=== PATIENT | female | born 1995 ===

== ENCOUNTER 2022-04-26 14:10 | Emergency (ER) | payer OTHER, SELFPAY ==
--- NOTE | ~2022-04-26 | US_ITS ---
EXAMINATION: US ABDOMEN COMPLETE CLINICAL INFORMATION: Upper abdominal pain. COMPARISON: None TECHNIQUE: Real-time imaging of the abdominal viscera. FINDINGS: PANCREAS: Normal. ABDOMINAL AORTA: The proximal, mid, and distal segments are normal in caliber. INFERIOR VENA CAVA: Visualized portions are normal. LIVER: Normal. The liver is normal in size. The liver contour is normal. Parenchymal echogenicity is normal. No focal hepatic lesion. There is no intrahepatic biliary duct dilatation seen. GALLBLADDER: Normal. The gallbladder is physiologically distended without evidence of stones, sludge, polyps, wall thickening or pericholecystic fluid. COMMON BILE DUCT: Normal in caliber measuring 0.1 cm in diameter. RIGHT KIDNEY: Normal. No hydronephrosis. No renal calculi or focal parenchymal lesions. The kidney measures 9.3 cm in maximum dimension. LEFT KIDNEY: Normal. No hydronephrosis. No renal calculi or focal parenchymal lesions. The kidney measures 9.8 cm in maximum dimension. SPLEEN: Incidentally noted splenule measuring 1.1 cm. The spleen measures 9.5 cm in maximum dimension. FREE FLUID: None. US/US abdomen complete IMPRESSION: No acute sonographic abnormalities to explain the patient's symptoms.
[2022-04-26 14:33] VITALS: BP 117/69; PULSE 69; RESP 18; TEMP 36.7; O2SAT 99; BMI 25.9
--- NOTE | 2022-04-26 14:34 | ED_ITS ---
HPI - Abdominal Pain General Chief Complaint: Abdominal Pain <JENNIFER Correa - Last Filed: 04/26/22 14:36> Stated Complaint: stomach pain, headache, allergies <JENINFER Correa - Last Filed: 04/26/22 14:36> Time Seen by Provider: 04/26/22 17:09 <JENNIFER Correa - Last Filed: 04/26/22 14:36> Source: patient <Keyon Cortes MD - Last Filed: 04/26/22 18:57> Mode of arrival: ambulatory <Keyon Cortes MD - Last Filed: 04/26/22 18:57> Limitations: no limitations <Keyon Cortes MD - Last Filed: 04/26/22 18:57> History of Present Illness HPI narrative: 26-year-old female presents with headache and abdominal pain. The headache is located generally. It does not radiate. Not associated with photo or phonophobia. It is not associated with nausea vomiting. She denies any neck pain or stiffness. She has had no fevers or chills. Patient denies a history of headaches in the past. Patient reports the pain is 10/10 and pressure like. Patient also reports epigastric abdominal pain. The symptoms started proximally for 5 days ago. Associated with nausea no vomiting. She denies diarrhea constipation. The pain does not radiate. The pain is rated as moderate to severe in nature. It does appear to be worse with drinking or eating. She had no fevers or chills. Patient reports the pain is burning in nature. <Keyon Cortes MD - Last Filed: 04/26/22 18:57> Related Data Home Medications: Previous Rx's Medication Instructions Recorded famotidine 20 mg tablet 20 mg PO BID #20 tabs 04/26/22 ibuprofen 600 mg tablet 600 mg PO Q8H PRN pain #14 tabs 04/26/22 metoclopramide HCl 10 mg tablet 10 mg PO Q6H PRN nausea and 04/26/22 (Reglan) vomiting #10 tabs <JENNIFER Correa - Last Filed: 04/26/22 14:36> Allergies/Adverse Reactions: Allergies Allergy/AdvReac Type Severity Reaction Status Date / Time Penicillins Allergy Rash Verified 04/26/22 14:32 <JENNIFER Correa - Last Filed: 04/26/22 14:36> [facility] Social History Social History: Social History Smoked in Last 30 Days: No Use of substances other than those prescribed or required for medical reasons: No Advance Directives: No Advance Directives Information Provided: No <JENNIFER Correa - Last Filed: 04/26/22 14:36> Physical Exam ED Vital Signs: Vital Signs - 24 hr 04/26/22 14:33 04/26/22 17:57 Temperature 98.0 F 98.0 F Pulse Rate 69 76 Respiratory Rate 18 16 Blood Pressure 117/69 120/78 Pulse Oximetry 99 98 Oxygen Delivery Method Room Air Room Air BMI result Body Mass Index 25.9 <JENNIFER Correa - Last Filed: 04/26/22 14:36> Vital Signs - 24 hr 04/26/22 14:33 04/26/22 17:57 Temperature 98.0 F 98.0 F Pulse Rate 69 76 Respiratory Rate 18 16 Blood Pressure 117/69 120/78 Pulse Oximetry 99 98 Oxygen Delivery Method Room Air Room Air BMI result Body Mass Index 25.9 <Keyon Cortes MD - Last Filed: 04/26/22 18:57> Course Course Course Narrative: CLAUDIO-14:35PM - 26yoF who is Albanian-speaking presenting to the ER with complaints of epigastric abdominal pain with associated nausea, lighthead edness/dizziness/headaches and skin allergy. Reports that her abdominal pain and nausea has been present for approximately 4 days. She has had section in the past although no other surgeries. She denies any fevers, chest pain, sore throat, shortness of breath, cough, vomiting, diarrhea constipation, recent travel or sick contacts, urinary symptoms, abnormal discharge or hematuria or any other symptoms complaints or concerns at this time Plan: Patient will be sent back to the waiting room to be evaluated in the ED with labs, ultrasound and UA ordered at this time. <JENNIFER Correa - Last Filed: 04/26/22 14:36> Reevaluation(s) Reevaluation #1: Patient is currently pain-free. She is aware of all results. She has had all her questions answered. She will be discharged at this time. Will provide patient with medications for headache, nausea, dyspepsia. <Keyon Cortes MD - Last Filed: 04/26/22 18:57> Time: 18:51 <Keyon Cortes MD - Last Filed: 04/26/22 18:57> Medical Decision Making Medical Decision Making [facility] Narrative: 26-year-old female presents with 2 symptoms. One is headache. The headache is globally located. There is no neck pain or stiffness. Examination is benign. There has been no rigors or chills. Doubt acute meningitis. Doubt subarachnoid there is no thunderclap sudden onset. Headache is most likely tension headache although could certainly be migraine, cluster, sinus. Will treat the patient symptomatically and re-evaluate. Additionally, patient complains of a burning epigastric abdominal pain associated with nausea. Symptoms are worse with eating. This could be gastritis, peptic ulcer disease, dyspepsia, GERD, reflux <Keyon Cortes MD - Last Filed: 04/26/22 18:57> Differential Diagnosis Differential Diagnoses: The differential diagnosis associated with the presentation includes (Headache, migraine headache, tension headache, cluster headache, sinus headache, less likely meningitis/subarachnoid/subdural/epidural. Epigastric abdominal pain could be gastritis, peptic ulcer disease, esophagitis, biliary) <Keyon Cortes MD - Last Filed: 04/26/22 18:57> Admission/Observation Consideration of admission/observation: Escalation of care including admission/observation considered <Keyon Cortes MD - Last Filed: 04/26/22 18:57> Lab Data [facility] Lab Attestation statement: I reviewed the patient's lab results. <Keyon Cortes MD - Last Filed: 04/26/22 18:57> Result Diagrams: 04/26/22 14:42 04/26/22 14:42 <JENNIFER Correa - Last Filed: 04/26/22 14:36> Labs: Lab Results 04/26/22 04/26/22 04/26/22 Range/Units 14:42 14:42 14:42 WBC 6.6 (4.8-10.8) X10*3/uL RBC 4.45 (4.20-5.50) X10*6/uL Hgb 13.2 (12.0-16.0) g/dl Hct 39.5 (37.0-47.0) % MCV 88.8 (80.0-98.0) fL MCH 29.7 (27.0-33.0) pg MCHC 33.4 (31.0-35.0) g/dl RDW 11.9 (11.0-16.0) % Plt Count 298 (160-400) X10*3/uL MPV 9.9 (9.4-12.3) fL Immature Gran % (Auto) 0.3 (0.0-0.4) % Neut % (Auto) 53.9 (45-73) % Lymph % (Auto) 34.8 (20-40) % [place] % (Auto) 7.2 (2-11) % Eos % (Auto) 3.0 (0-4) % Baso % (Auto) 0.8 (0-2) % Lymph # (Auto) 2.3 (1.2-4.9) X10*3/uL [place] # (Auto) 0.5 (0.1-1.2) X10*3/uL Eos # (Auto) 0.2 (0.0-0.4) X10*3/uL Baso # (Auto) 0.1 (0.0-0.2) X10*3/uL Abs Immat Gran (auto) 0.02 (0.00-0.03) X10*3/uL Absolute Neuts (auto) 3.6 (2.0-8.3) x10*3/uL Absolute Nucleated RBC 0.000 (0.0-0.012) X10*3/uL Nucleated RBC % (auto) 0.0 (0.0-0.2) /100WBC PT 12.5 (10.0-13.1) SEC INR 1.1 (0.9-1.1) Sodium 141 (135-145) mmol/L Potassium 4.7 (3.3-5.1) mmol/L Chloride 110 H (96-108) mmol/L Carbon Dioxide 24 (22-29) mmol/L Anion Gap 12 (12-20) BUN 10 (9-16) mg/dL Creatinine 0.79 (0.5-1.4) mg/dL Estim Creat Clear Calc 101.7 Estimated GFR > 60 Random Glucose 92 (60-115) mg/dL Calcium 9.3 (8.4-10.2) mg/dL Magnesium 1.9 (1.6-2.6) mg/dL Total Bilirubin 0.8 (0.0-1.0) mg/dL AST 14 (5-31) U/L ALT 10 (0-31) U/L Alkaline Phosphatase 56 (39-117) U/L Total Protein 7.0 (6.5-8.0) g/dL Albumin 3.9 (3.5-5.0) g/dL Lipase 19 (8-78) U/L Beta HCG, Quant < 2 mIU/mL Influenza Type A (PCR) (Negative) Influenza Type B (PCR) (Negative) RSV RNA Qual (PCR) (Negative) SARS-CoV-2 RNA (RT-PCR) (Negative) 04/26/22 Range/Units 14:42 WBC (4.8-10.8) X10*3/uL RBC (4.20-5.50) X10*6/uL Hgb (12.0-16.0) g/dl Hct (37.0-47.0) % MCV (80.0-98.0) fL MCH (27.0-33.0) pg MCHC (31.0-35.0) g/dl RDW (11.0-16.0) % Plt Count (160-400) X10*3/uL MPV (9.4-12.3) fL Immature Gran % (Auto) (0.0-0.4) % Neut % (Auto) (45-73) % Lymph % (Auto) (20-40) % [place] % (Auto) (2-11) % Eos % (Auto) (0-4) % Baso % (Auto) (0-2) % Lymph # (Auto) (1.2-4.9) X10*3/uL [place] # (Auto) (0.1-1.2) X10*3/uL Eos # (Auto) (0.0-0.4) X10*3/uL Baso # (Auto) (0.0-0.2) X10*3/uL Abs Immat Gran (auto) (0.00-0.03) X10*3/uL Absolute Neuts (auto) (2.0-8.3) x10*3/uL Absolute Nucleated RBC (0.0-0.012) X10*3/uL Nucleated RBC % (auto) (0.0-0.2) /100WBC PT (10.0-13.1) SEC INR (0.9-1.1) Sodium (135-145) mmol/L Potassium (3.3-5.1) mmol/L Chloride (96-108) mmol/L Carbon Dioxide (22-29) mmol/L Anion Gap (12-20) BUN (9-16) mg/dL Creatinine (0.5-1.4) mg/dL Estim Creat Clear Calc Estimated GFR Random Glucose (60-115) mg/dL Calcium (8.4-10.2) mg/dL Magnesium (1.6-2.6) mg/dL Total Bilirubin (0.0-1.0) mg/dL AST (5-31) U/L ALT (0-31) U/L Alkaline Phosphatase (39-117) U/L Total Protein (6.5-8.0) g/dL Albumin (3.5-5.0) g/dL Lipase (8-78) U/L Beta HCG, Quant mIU/mL Influenza Type A (PCR) NEGATIVE (Negative) Influenza Type B (PCR) NEGATIVE (Negative) RSV RNA Qual (PCR) NEGATIVE (Negative) SARS-CoV-2 RNA (RT-PCR) NEGATIVE (Negative) <JENNIFER Correa - Last Filed: 04/26/22 14:36> Lab Results 04/26/22 04/26/22 04/26/22 Range/Units 14:42 14:42 14:42 WBC 6.6 (4.8-10.8) X10*3/uL RBC 4.45 (4.20-5.50) X10*6/uL Hgb 13.2 (12.0-16.0) g/dl Hct 39.5 (37.0-47.0) % MCV 88.8 (80.0-98.0) fL MCH 29.7 (27.0-33.0) pg MCHC 33.4 (31.0-35.0) g/dl RDW 11.9 (11.0-16.0) % Plt Count 298 (160-400) X10*3/uL MPV 9.9 (9.4-12.3) fL Immature Gran % (Auto) 0.3 (0.0-0.4) % Neut % (Auto) 53.9 (45-73) % Lymph % (Auto) 34.8 (20-40) % [place] % (Auto) 7.2 (2-11) % Eos % (Auto) 3.0 (0-4) % Baso % (Auto) 0.8 (0-2) % Lymph # (Auto) 2.3 (1.2-4.9) X10*3/uL [place] # (Auto) 0.5 (0.1-1.2) X10*3/uL Eos # (Auto) 0.2 (0.0-0.4) X10*3/uL Baso # (Auto) 0.1 (0.0-0.2) X10*3/uL Abs Immat Gran (auto) 0.02 (0.00-0.03) X10*3/uL Absolute Neuts (auto) 3.6 (2.0-8.3) x10*3/uL Absolute Nucleated RBC 0.000 (0.0-0.012) X10*3/uL Nucleated RBC % (auto) 0.0 (0.0-0.2) /100WBC PT 12.5 (10.0-13.1) SEC INR 1.1 (0.9-1.1) Sodium 141 (135-145) mmol/L Potassium 4.7 (3.3-5.1) mmol/L Chloride 110 H (96-108) mmol/L Carbon Dioxide 24 (22-29) mmol/L Anion Gap 12 (12-20) BUN 10 (9-16) mg/dL Creatinine 0.79 (0.5-1.4) mg/dL Estim Creat Clear Calc 101.7 Estimated GFR > 60 Random Glucose 92 (60-115) mg/dL Calcium 9.3 (8.4-10.2) mg/dL Magnesium 1.9 (1.6-2.6) mg/dL Total Bilirubin 0.8 (0.0-1.0) mg/dL AST 14 (5-31) U/L ALT 10 (0-31) U/L Alkaline Phosphatase 56 (39-117) U/L Total Protein 7.0 (6.5-8.0) g/dL Albumin 3.9 (3.5-5.0) g/dL Lipase 19 (8-78) U/L Beta HCG, Quant < 2 mIU/mL Influenza Type A (PCR) (Negative) Influenza Type B (PCR) (Negative) RSV RNA Qual (PCR) (Negative) SARS-CoV-2 RNA (RT-PCR) (Negative) 04/26/22 Range/Units 14:42 WBC (4.8-10.8) X10*3/uL RBC (4.20-5.50) X10*6/uL Hgb (12.0-16.0) g/dl Hct (37.0-47.0) % MCV (80.0-98.0) fL MCH (27.0-33.0) pg MCHC (31.0-35.0) g/dl RDW (11.0-16.0) % Plt Count (160-400) X10*3/uL MPV (9.4-12.3) fL Immature Gran % (Auto) (0.0-0.4) % Neut % (Auto) (45-73) % Lymph % (Auto) (20-40) % [place] % (Auto) (2-11) % Eos % (Auto) (0-4) % Baso % (Auto) (0-2) % Lymph # (Auto) (1.2-4.9) X10*3/uL [place] # (Auto) (0.1-1.2) X10*3/uL Eos # (Auto) (0.0-0.4) X10*3/uL Baso # (Auto) (0.0-0.2) X10*3/uL Abs Immat Gran (auto) (0.00-0.03) X10*3/uL Absolute Neuts (auto) (2.0-8.3) x10*3/uL Absolute Nucleated RBC (0.0-0.012) X10*3/uL Nucleated RBC % (auto) (0.0-0.2) /100WBC PT (10.0-13.1) SEC INR (0.9-1.1) Sodium (135-145) mmol/L Potassium (3.3-5.1) mmol/L Chloride (96-108) mmol/L Carbon Dioxide (22-29) mmol/L Anion Gap (12-20) BUN (9-16) mg/dL Creatinine (0.5-1.4) mg/dL Estim Creat Clear Calc Estimated GFR Random Glucose (60-115) mg/dL Calcium (8.4-10.2) mg/dL Magnesium (1.6-2.6) mg/dL Total Bilirubin (0.0-1.0) mg/dL AST (5-31) U/L ALT (0-31) U/L Alkaline Phosphatase (39-117) U/L Total Protein (6.5-8.0) g/dL Albumin (3.5-5.0) g/dL Lipase (8-78) U/L Beta HCG, Quant mIU/mL Influenza Type A (PCR) NEGATIVE (Negative) Influenza Type B (PCR) NEGATIVE (Negative) RSV RNA Qual (PCR) NEGATIVE (Negative) SARS-CoV-2 RNA (RT-PCR) NEGATIVE (Negative) <Keyon Cortes MD - Last Filed: 04/26/22 18:57> Independent Interpretation I performed an independent interpretation of an: Ultrasound (no acute findings) <Keyon Cortes MD - Last Filed: 04/26/22 18:57> Radiology Impression Discussion of test interpretation with radiology: I have reviewed the radiologist's reading. (IMPRESSION: No acute sonographic abnormalities to explain the patient's symptoms. Dictated By:Romi ChesterSigned By:<Electronically signed by Romi Chester in [place]>04/26/22 1616 DD/ 1519TD/TT: Policy Value Calculator:) <Keyon Cortes MD - Last Filed: 04/26/22 18:57> Tests considered The following testing was considered but not selected: CT head <Keyon Cortes MD - Last Filed: 04/26/22 18:57> Prescription Management I considered prescription management with: Pain Medication <Keyon Cortes MD - Last Filed: 04/26/22 18:57> Medications Administered Discontinued Medications Generic Name Dose Route Start Last Admin Trade Name Freq PRN Reason Stop Dose Admin Acetaminophen 975 mg 04/26/22 17:25 04/26/22 17:58 Acetaminophen 325 Mg Tablet PO 04/26/22 17:26 975 mg ONCE ONE Administration Al Hydroxide/Mg Hydroxide 30 ml 04/26/22 17:25 04/26/22 18:00 Magnesium Hydrox/Alum Hydrox 30 Ml Oral.Susp PO 04/26/22 17:26 30 ml ONCE ONE Administration Famotidine 20 mg 04/26/22 17:25 04/26/22 17:59 Famotidine 20 Mg Tablet PO 04/26/22 17:26 20 mg ONCE ONE Administration Ketorolac Tromethamine 30 mg 04/26/22 17:25 04/26/22 17:58 Ketorolac Tromethamine 30 Mg/Ml Vial IM 04/26/22 17:26 30 mg ONCE ONE Administration Metoclopramide HCl 10 mg 04/26/22 17:25 04/26/22 17:59 Metoclopramide Hcl 10 Mg Tablet PO 04/26/22 17:26 10 mg ONCE ONE Administration <JENNIFER Correa - Last Filed: 04/26/22 14:36> Medications Administered Discontinued Medications Generic Name Dose Route Start Last Admin Trade Name Ozzie PRN Reason Stop Dose Admin Acetaminophen 975 mg 04/26/22 17:25 04/26/22 17:58 Acetaminophen 325 Mg Tablet PO 04/26/22 17:26 975 mg ONCE ONE Administration Al Hydroxide/Mg Hydroxide 30 ml 04/26/22 17:25 04/26/22 18:00 Magnesium Hydrox/Alum Hydrox 30 Ml Oral.Susp PO 04/26/22 17:26 30 ml ONCE ONE Administration Famotidine 20 mg 04/26/22 17:25 04/26/22 17:59 Famotidine 20 Mg Tablet PO 04/26/22 17:26 20 mg ONCE ONE Administration Ketorolac Tromethamine 30 mg 04/26/22 17:25 04/26/22 17:58 Ketorolac Tromethamine 30 Mg/Ml Vial IM 04/26/22 17:26 30 mg ONCE ONE Administration Metoclopramide HCl 10 mg 04/26/22 17:25 04/26/22 17:59 Metoclopramide Hcl 10 Mg Tablet PO 04/26/22 17:26 10 mg ONCE ONE Administration <Keyon Cortes MD - Last Filed: 04/26/22 18:57> Discharge Plan Discharge Clinical Impression: Acute headache, Abdominal pain, epigastric <JENNIFER Correa - Last Filed: 04/26/22 14:36> Patient Disposition: Home, Self-Care <JENNIFER Correa - Last Filed: 04/26/22 14:36> Instructions: Gastroesophageal Reflux Disease (ED), Acute Headache (ED), Epigastric Pain (ED) <JENNIFER Correa - Last Filed: 04/26/22 14:36> Prescriptions: New famotidine 20 mg tablet 20 mg PO BID Qty: 20 0RF metoclopramide HCl [Reglan] 10 mg tablet 10 mg PO Q6H PRN (Reason: nausea and vomiting) Qty: 10 0RF ibuprofen 600 mg tablet 600 mg PO Q8H PRN (Reason: pain) Qty: 14 0RF <JENNIFER Correa - Last Filed: 04/26/22 14:36> Referrals: Physician,Unknown J [Primary Care Provider] - <JENNIFER Correa - Last Filed: 04/26/22 14:36> Print Language: Albanian <JENNIFER Correa - Last Filed: 04/26/22 14:36>
[2022-04-26 14:48] LABS: Basophils Absolute Auto 0.1 X10*3/uL (0.0-0.2); Basophils Percent Auto 0.8 % (0-2); Eosinophils Absolute Auto 0.2 X10*3/uL (0.0-0.4); Hematocrit 39.5 % (37.0-47.0); Hemoglobin 13.2 g/dl (12.0-16.0); Imm Gran Abs Auto 0.02 X10*3/uL (0.00-0.03); Imm Gran Pct Auto 0.3 % (0.0-0.4); Lymphocytes Absolute Auto 2.3 X10*3/uL (1.2-4.9); Lymphocytes Percent Auto 34.8 % (20-40); MANUAL DIFF FLAG NO; Mean Corpuscular HGB Conc 33.4 g/dl (31.0-35.0); Mean Corpuscular Hemoglobin 29.7 pg (27.0-33.0); Mean Corpuscular Volume 88.8 fL (80.0-98.0); Mean Platelet Volume 9.9 fL (9.4-12.3); Monocytes Absolute Auto 0.5 X10*3/uL (0.1-1.2); Monocytes Percent Auto 7.2 % (2-11); Neutrophils Absolute Auto 3.6 x10*3/uL (2.0-8.3); Neutrophils Percent Auto 53.9 % (45-73); Platelet Count 298 X10*3/uL (160-400); Red Blood Count 4.45 X10*6/uL (4.20-5.50); Red Cell Distribution Width 11.9 % (11.0-16.0); White Blood Count 6.6 X10*3/uL (4.8-10.8)
[2022-04-26 14:54] LABS: INTERNATIONAL NORM RATIO 1.1 (0.9-1.1); Prothrombin Time 12.5 SEC (10.0-13.1)
[2022-04-26 15:26] LABS: Alanine Aminotransferase 10 U/L (0-31); Albumin Level 3.9 g/dL (3.5-5.0); Alkaline Phosphatase 56 U/L (39-117); Anion Gap 12 (12-20); Aspartate Amino Transferase 14 U/L (5-31); Bilirubin Total 0.8 mg/dL (0.0-1.0); Blood Urea Nitrogen 10 mg/dL (9-16); Calcium 9.3 mg/dL (8.4-10.2); Carbon Dioxide 24 mmol/L (22-29); Chloride 110 mmol/L (96-108); Creatinine Clr Calc Pharmacy 101.7; Estimated Glomerular Filt Rate > 60; Glucose Random 92 mg/dL (60-115); Lipase 19 U/L (8-78); Magnesium 1.9 mg/dL (1.6-2.6); Potassium 4.7 mmol/L (3.3-5.1); Sodium 141 mmol/L (135-145)
[2022-04-26 15:27] LABS: HCG Quantitative < 2 mIU/mL
[2022-04-26 15:50] LABS: Influenza A PCR NEGATIVE (Negative); Influenza B PCR NEGATIVE (Negative); Resp Syncy Virus RNA Qual PCR NEGATIVE (Negative); SARS COV2 PCR INHOUSE NEGATIVE (Negative)
[2022-04-26 17:57] VITALS: BP 120/78; PULSE 76; RESP 16; TEMP 36.7; O2SAT 98
[2022-04-26] MEDS: Acetaminophen 325 MG TABLET 975 MG PO (17:58)
[2022-04-26] MEDS: Ketorolac Tromethamine 30 MG/ML VIAL IM (17:58)
[2022-04-26] MEDS: Metoclopramide HCl 10 MG TABLET PO (17:59)
[2022-04-26] MEDS: Famotidine 20 MG TABLET PO (17:59)
[2022-04-26] MEDS: Magnesium Hydrox/Alum Hydrox 30 ML ORAL.SUSP PO (18:00)
--- NOTE | 2022-04-26 19:29 | PC.NURSE ---
Reviewed discharge instructions with pt. pt verbalized understanding. notified BERTIN Brush
== END 2022-04-26 19:28 | disposition home or self-care (01) ==
PROVIDERS: Physician Assistant Medical; Emergency Provider Emergency Medicine
DX: R51.9 Headache, unspecified (principal); R10.13 Epigastric pain; Z20.822 Contact with and (suspected) exposure to COVID-19; Z20.828 Contact with and (suspected) exposure to other viral communicable diseases; Z79.899 Other long term (current) drug therapy
CPT/HCPCS: 0241U; 36415; 76700; 80053; 83690; 83735; 84702; 85025; 85610; 96372; 99284; J1885

== ENCOUNTER 2022-07-13 10:28 | Emergency (ER) | payer OTHER, SELFPAY ==
[2022-07-13 10:39] VITALS: BP 110/52; PULSE 84; RESP 16; TEMP 37.2; O2SAT 100; BMI 28.7
[2022-07-13 10:57] LABS: MANUAL DIFF FLAG NO
[2022-07-13 10:59] LABS: Basophils Percent Auto 0.2 % (0-2); Eosinophils Absolute Auto 0.3 X10*3/uL (0.0-0.4); Eosinophils Percent Auto 3.3 % (0-4); Hematocrit 39.4 % (37.0-47.0); Imm Gran Abs Auto 0.02 X10*3/uL (0.00-0.03); Imm Gran Pct Auto 0.2 % (0.0-0.4); Lymphocytes Absolute Auto 2.2 X10*3/uL (1.2-4.9); Lymphocytes Percent Auto 23.6 % (20-40); Mean Corpuscular Hemoglobin 29.8 pg (27.0-33.0); Mean Corpuscular Volume 90.4 fL (80.0-98.0); Mean Platelet Volume 10.2 fL (9.4-12.3); Monocytes Absolute Auto 0.6 X10*3/uL (0.1-1.2); Neutrophils Percent Auto 65.7 % (45-73); Platelet Count 279 X10*3/uL (160-400); Red Blood Count 4.36 X10*6/uL (4.20-5.50); Red Cell Distribution Width 12.2 % (11.0-16.0); White Blood Count 9.1 X10*3/uL (4.8-10.8)
[2022-07-13 11:15] LABS: Alanine Aminotransferase 11 U/L (0-31); Albumin Level 3.8 g/dL (3.5-5.0); Alkaline Phosphatase 52 U/L (39-117); Anion Gap 12 (12-20); Aspartate Amino Transferase 14 U/L (5-31); Bilirubin Direct 0.2 mg/dL (0.0-0.5); Bilirubin Total 0.7 mg/dL (0.0-1.0); Blood Urea Nitrogen 10 mg/dL (9-16); Calcium 8.8 mg/dL (8.4-10.2); Carbon Dioxide 20 mmol/L (22-29); Chloride 108 mmol/L (96-108); Creatinine Clr Calc Pharmacy 105.4; Estimated Glomerular Filt Rate > 60; Glucose Random 88 mg/dL (60-115); Potassium 4.1 mmol/L (3.3-5.1); Sodium 136 mmol/L (135-145); Total Protein 7.1 g/dL (6.5-8.0)
[2022-07-13 13:58] VITALS: BP 113/66; PULSE 85; RESP 18; O2SAT 100
[2022-07-13 14:00] VITALS: TEMP 36.9
--- NOTE | 2022-07-13 14:26 | ECG_ITS ---
Test Reason : CP Blood Pressure : / mmHG Vent. Rate : 067 BPM Atrial Rate : 067 BPM P-R Int : 148 ms QRS Dur : 086 ms QT Int : 386 ms P-R-T Axes : 047 052 026 degrees QTc Int : 407 ms Normal sinus rhythm with sinus arrhythmia Normal ECG No previous ECGs available Referred By: Shirlene Mitchell Electronically Signed By:RAMIREZ CHRISTENSEN MD
[2022-07-13 14:55] VITALS: BP 126/85; PULSE 79; TEMP 36.7; O2SAT 100
--- NOTE | 2022-07-13 15:00 | ED.GENADULT ---
HPI - General Adult General Chief complaint: Abdominal Pain Stated complaint: Upper abd pain Time Seen by Provider: 07/13/22 14:24 Source: patient Mode of arrival: ambulatory Limitations: no limitations History of Present Illness HPI narrative: Patient comes to emergency room complaining of epigastric pain with eating or drinking occasionally, and complaining of a headache. Patient states that she feels very stressed, works 7 days a week. States that she needs a day off of work to recuperate. Denies nausea vomiting or diarrhea, complaining of subjective fever last night. Related Data Previous Rx's Medication Instructions Recorded famotidine 20 mg tablet 20 mg PO BID #20 tabs 04/26/22 ibuprofen 600 mg tablet 600 mg PO Q8H PRN pain #14 tabs 04/26/22 metoclopramide HCl 10 mg tablet 10 mg PO Q6H PRN nausea and 04/26/22 (Reglan) vomiting #10 tabs omeprazole 40 mg capsule,delayed 40 mg PO DAILY #30 caps 07/13/22 release Allergies Allergy/AdvReac Type Severity Reaction Status Date / Time Penicillins Allergy Rash Verified 04/26/22 14:32 Review of Systems Review of Systems: Constitutional : No Weight loss, No Fever, No Chills, No Night Sweats, No Fatigue, No Malaise ENT/Mouth : No Hearing loss, No Ear Pain, No Nasal Congestion, No Sinus Pain, No Hoarseness, No sore throat, No Rhinorrhea, No Swallowing Difficulty Eyes: No Eye Pain, No Swelling, No Redness, No Foreign Body, No Discharge, No Vision Changes Cardiovascular : No Chest Pain, No SOB, No Dyspnea on Exertion, No Orthopnea, No Edema, No Palpitations Respiratory : No Cough, No Sputum, No Wheezing, No Smoke Exposure, No Dyspnea Gastrointestinal : No Nausea, complaining of nausea, no diarrhea no constipation, complaining of epigastric pain, mostly with eating or drinking Genitourinary : no irregular bleeding, No Dysuria, No Urinary Frequency, No Hematuria, No Urinary Incontinence, No Urgency, No Flank Pain, No Urinary Flow Changes, No Hesitancy Musculoskeletal : No joint pain, No Myalgias, No Joint Swelling Skin : No Skin Lesions, No rash Neuro : No Weakness, No Numbness, No Paresthesias, No Loss of Consciousness, No Dizziness, complaining of Headache Psych : No Anxiety/Panic, No Depression, No SI/HI/AH/VH, No Social Issues, feeling stressed Heme/Lymph: No Bruising, No Bleeding,No Lymphadenopathy Endocrine : No Polyuria, No Polydipsia, No Temperature Intolerance [facility] Social History Social History Alcohol intake: never Smoked in Last 30 Days: No Use of substances other than those prescribed or required for medical reasons: No Advance Directives: No Advance Directives Information Provided: Yes Physical Exam ED Vital Signs: Vital Signs - 24 hr 07/13/22 10:39 07/13/22 13:58 07/13/22 14:00 Temperature 98.9 F 98.4 F Pulse Rate 84 85 Respiratory Rate 16 18 Blood Pressure 110/52 L 113/66 Pulse Oximetry 100 100 Oxygen Delivery Method Room Air Room Air 07/13/22 14:55 Temperature 98.0 F Pulse Rate 79 Respiratory Rate Blood Pressure 126/85 Pulse Oximetry 100 Oxygen Delivery Method Room Air BMI result Body Mass Index 28.7 Const Other: Appearance: Alert. Oriented X3. No acute distress. Well-appearing Eyes: Pupils equal, round and reactive to light. No photophobia ENT: Pharynx normal. Neck: Normal inspection. Neck supple. No lymph nodes noted. No crepitus CVS: Normal heart rate and rhythm. Pulses normal. Normal S1 and S2 Respiratory: No respiratory distress. Breath sounds normal. No Wheezing. No rales Abdomen: Soft and nontender. No rigidity. No distention. Skin: Skin warm and dry. Normal skin color. Normal skin turgor. Extremities: No lower extremity edema. No Lacerations. No Rash Neuro: Oriented X 3. No motor deficit. No sensory deficit. Moving all extremities. No slurred speech. CN 2 through 12 grossly intact Psych: calm, cooperative, normal affect Course Course Course Narrative: -patient receiving IV fluids, famotidine, Reglan, 1 mg of morphine and Benadryl. Medical Decision Making Medical Decision Making [facility] Narrative: -EKG my interpretation: Sinus rhythm, heart rate 67, no ST segment depression or elevation, no T-wave inversion, QTC 407 -patient likely having mild gastritis. -patient working long hours every day without rest, likely attributing to her symptoms. Lab Data 07/13/22 10:46 07/13/22 10:46 Labs: Lab Results 07/13/22 07/13/22 Range/Units 10:46 10:46 WBC 9.1 (4.8-10.8) X10*3/uL RBC 4.36 (4.20-5.50) X10*6/uL Hgb 13.0 (12.0-16.0) g/dl Hct 39.4 (37.0-47.0) % MCV 90.4 (80.0-98.0) fL MCH 29.8 (27.0-33.0) pg MCHC 33.0 (31.0-35.0) g/dl RDW 12.2 (11.0-16.0) % Plt Count 279 (160-400) X10*3/uL MPV 10.2 (9.4-12.3) fL Immature Gran % (Auto) 0.2 (0.0-0.4) % Neut % (Auto) 65.7 (45-73) % Lymph % (Auto) 23.6 (20-40) % [place] % (Auto) 7.0 (2-11) % Eos % (Auto) 3.3 (0-4) % Baso % (Auto) 0.2 (0-2) % Lymph # (Auto) 2.2 (1.2-4.9) X10*3/uL [place] # (Auto) 0.6 (0.1-1.2) X10*3/uL Eos # (Auto) 0.3 (0.0-0.4) X10*3/uL Baso # (Auto) 0.0 (0.0-0.2) X10*3/uL Abs Immat Gran (auto) 0.02 (0.00-0.03) X10*3/uL Absolute Neuts (auto) 6.0 (2.0-8.3) x10*3/uL Absolute Nucleated RBC 0.000 (0.0-0.012) X10*3/uL Nucleated RBC % (auto) 0.0 (0.0-0.2) /100WBC Sodium 136 (135-145) mmol/L Potassium 4.1 (3.3-5.1) mmol/L Chloride 108 (96-108) mmol/L Carbon Dioxide 20 L (22-29) mmol/L Anion Gap 12 (12-20) BUN 10 (9-16) mg/dL Creatinine 0.77 (0.5-1.4) mg/dL Estim Creat Clear Calc 105.4 Estimated GFR > 60 Random Glucose 88 (60-115) mg/dL Calcium 8.8 (8.4-10.2) mg/dL Total Bilirubin 0.7 (0.0-1.0) mg/dL Direct Bilirubin 0.2 (0.0-0.5) mg/dL AST 14 (5-31) U/L ALT 11 (0-31) U/L Alkaline Phosphatase 52 (39-117) U/L Total Protein 7.1 (6.5-8.0) g/dL Albumin 3.8 (3.5-5.0) g/dL Discharge Plan Discharge Clinical Impression: Headache, Epigastric pain Patient Disposition: Home, Self-Care Instructions: Gastritis (ED), Diet for Stomach Ulcers and Gastritis (ED), Acute Headache (ED) Additional Instructions: Please follow-up with your primary care physician tomorrow. If you have any worsening or new symptoms, please return to the emergency room or call 911 Prescriptions: New omeprazole 40 mg capsule,delayed release(DR/EC) 40 mg PO DAILY Qty: 30 0RF No Action famotidine 20 mg tablet 20 mg PO BID Qty: 20 0RF metoclopramide HCl [Reglan] 10 mg tablet 10 mg PO Q6H PRN (Reason: nausea and vomiting) Qty: 10 0RF ibuprofen 600 mg tablet 600 mg PO Q8H PRN (Reason: pain) Qty: 14 0RF Stand Alone Forms: Work/School Release
[2022-07-13 15:04] LABS: Lipase 23 U/L (8-78)
[2022-07-13 15:18] LABS: HCG Quantitative < 2 mIU/mL
[2022-07-13] MEDS: Metoclopramide HCl 10 MG/2 ML VIAL IVPUSH (15:25)
[2022-07-13] MEDS: Famotidine/PF 20 MG/2 ML VIAL IVPUSH (15:26)
[2022-07-13] MEDS: diphenhydrAMINE HCL 50 MG/ML VIAL 25 MG IVPUSH (15:27)
[2022-07-13] MEDS: Morphine Sulfate 2 MG/ML CARTRIDGE 1 MG IVPUSH (15:28)
[2022-07-13 16:16] VITALS: BP 112/59; PULSE 72; RESP 16
== END 2022-07-13 16:17 | disposition home or self-care (01) ==
PROVIDERS: Emergency Provider Emergency Medicine
DX: R51.9 Headache, unspecified (principal); R10.13 Epigastric pain; Z79.899 Other long term (current) drug therapy
CPT/HCPCS: 36415; 80048; 80076; 83690; 84702; 85025; 93005; 96374; 96375; 99284; J1200; J2270; J2765

== ENCOUNTER 2022-08-16 14:36 | Emergency (ER) | payer OTHER, SELFPAY ==
[2022-08-16 14:44] VITALS: BP 138/66; PULSE 70; RESP 18; TEMP 36.7; O2SAT 98; BMI 25.1
--- NOTE | 2022-08-16 14:47 | ED.GENADULT ---
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 Related Data Previous Rx's Medication Instructions Recorded famotidine 20 mg tablet 20 mg PO BID #20 tabs 04/26/22 ibuprofen 600 mg tablet 600 mg PO Q8H PRN pain #14 tabs 04/26/22 metoclopramide HCl 10 mg tablet 10 mg PO Q6H PRN nausea and 04/26/22 (Reglan) vomiting #10 tabs omeprazole 40 mg capsule,delayed 40 mg PO DAILY #30 caps 07/13/22 release Allergies Allergy/AdvReac Type Severity Reaction Status Date / Time Penicillins Allergy Rash Verified 08/16/22 21:09 Review of Systems Constitutional: Constitutional: Reports headache(s), Reports lethargy, Reports malaise and Reports weakness ENT: Reports headache(s) Cardiovascular: Cardiovascular: Denies chest pain and Denies dyspnea Respiratory: Respiratory: Denies cough and Denies dyspnea Gastrointestinal: Gastrointestinal: Denies abdominal pain, Denies nausea and Denies vomiting Neurologic: Reports headache(s) and Reports weakness PMFSH Social History Social History Alcohol intake: never Smoked in Last 30 Days: No Use of substances other than those prescribed or required for medical reasons: No Advance Directives: No Advance Directives Information Provided: Yes Patient : No Physical Exam ED Vital Signs: Vital Signs - 24 hr 08/16/22 14:44 Temperature 98.1 F Pulse Rate 70 Respiratory Rate 18 Blood Pressure 138/66 Pulse Oximetry 98 Oxygen Delivery Method Room Air BMI result Body Mass Index 25.1 Const General: healthy appearing, comfortable, no acute distress, alert and awake Nutritional Appearance: well nourished Orientation/consciousness: patient oriented x3 HENMT Head: Yes normocephalic and Yes atraumatic Eyes Eyelids: Yes eyelids normal Conjunctivae: conjunctivae normal Sclerae: sclerae normal Corneas: corneas normal Pupils: Equal, round and reactive pupils present EOM: EOMs intact bilaterally Neck Neck: Yes full ROM and Yes no meningeal signs Resp Effort & Inspection: normal respiratory effort, able to speak in complete sentences and not labored Skin General skin exam: no rashes or lesions noted and elasticity normal Neuro General: patient oriented x3 and no meningeal signs Cranial nerves: Yes CN's II-XII intact bilaterally, Yes Equal, round and reactive pupils present and Yes Bilaterally intact EOM present Cognition (Neuro): normal cognition Extrem Other: Moving all extremities well without any obvious deformities Course Course Course Narrative: RmE: 26 yold female presents to the ED for headaches, and bodyaches and fatigue. patient working 7 days a a week. patient states her job mandates her to get a work note to get days off. Medications Administered Discontinued Medications Generic Name Dose Route Start Last Admin Trade Name Ozzie PRN Reason Stop Dose Admin Ketorolac Tromethamine 30 mg 08/16/22 20:55 08/16/22 21:10 Ketorolac Tromethamine 30 Mg/Ml Vial IM 08/16/22 20:56 30 mg ONCE ONE Administration Medical Decision Making Medical Decision Making [facility] Narrative: This is a healthy 26-year-old female presents for evaluation of headache and weakness the last few days. She reports feeling over worked as she reports that she has not had a day off an approximately 32 days. Her physical exam is benign, she tested negative for influenza, COVID-19 and RSV. The patient's symptoms most likely related to stress. Will treat her headache with Toradol and she will be discharged with naproxen. Patient was advised to attempt to clarify labor loss and chronic as she states that she has been denied a day off for over 30 days Differential Diagnosis Acute headache Stress Anxiety Viral syndrome Lab Data Labs: Lab Results 08/16/22 08/16/22 Range/Units 15:31 15:31 COVID-19 (NGHIA) Negative (Negative) COVID-19 Clin Com See Note Influenza Type A (YANIV) Negative (Negative) Influenza Type B (YANIV) Negative (Negative) Influenza A & B Note See Note Discharge Plan Discharge Clinical Impression: Acute headache Patient Disposition: Home, Self-Care Instructions: Acute Headache (ED) Additional Instructions: You do not have influenza, COVID-19, or RSV viruses Your symptoms are most likely related to stress and feeling over worked You should try to clarify labor laws in [place] so that you are not taken advantage of Prescriptions: No Action famotidine 20 mg tablet 20 mg PO BID Qty: 20 0RF metoclopramide HCl [Reglan] 10 mg tablet 10 mg PO Q6H PRN (Reason: nausea and vomiting) Qty: 10 0RF ibuprofen 600 mg tablet 600 mg PO Q8H PRN (Reason: pain) Qty: 14 0RF omeprazole 40 mg capsule,delayed release(DR/EC) 40 mg PO DAILY Qty: 30 0RF Stand Alone Forms: Work/School Release Interventions: ED Discharge Assessment Last Done: 08/16/22 21:17 Discharge Date/Time: 08/16/22 21:18
[2022-08-16 21:06] VITALS: BP 126/76; PULSE 75; RESP 16; TEMP 36.7; O2SAT 99
== END 2022-08-16 21:18 | disposition home or self-care (01) ==
PROVIDERS: Emergency Provider Internal Medicine
DX: R51.9 Headache, unspecified (principal); Z20.822 Contact with and (suspected) exposure to COVID-19; M79.10 Myalgia, unspecified site; R53.83 Other fatigue
CPT/HCPCS: 87502; 87635; 96372; 99284; J1885

== ENCOUNTER 2023-11-21 16:18 | Outpatient (REF) | payer OTHER, SELFPAY ==
[2023-11-21 18:53] LABS: HCG Quantitative < 2 mIU/mL
== END 2023-11-21 16:19 | disposition home or self-care (01) ==
LOC: HO.HHCL 16:18
PROVIDERS: Visit Provider Internal Medicine
DX: R11.0 Nausea (principal); N92.6 Irregular menstruation, unspecified
CPT/HCPCS: 36415; 84702

== ENCOUNTER 2024-01-06 10:59 | Emergency (ER) | payer MEDICAID, SELFPAY ==
--- NOTE | ~2024-01-06 | US_ITS ---
HISTORY: Lower abdominal pain. Rule out ectopic. Positive urine beta hCG. TECHNIQUE: The pelvis was examined via transabdominal and transvaginal approaches. Rice-scale imaging was performed, with color Doppler and spectral Doppler supplementation. COMPARISON: None. FINDINGS: An intrauterine gestational sac contains a pole and yolk sac. [place] rump length measures 0.36 cm, corresponding to an estimated gestational age of 6 weeks 1 days, for an estimated date of delivery of August 30, 2024. heart rate measures 116 BPM. The yolk sac measures 0.45 cm. No subchorionic bleed is appreciated. The ovaries appear unremarkable. The right ovary measures 3.7 x 2.1 x 1.8 cm. The left ovary measures 4.2 x 2.5 x 5.5 cm. No free fluid is seen in the pelvis. US/US OB transvaginal IMPRESSION: Single live intrauterine gestation at 6 weeks 1 days by ultrasound measurements. Electronically signed by: Jose Kinsey MD 01/06/2024 03:47 PM SHELL
--- NOTE | ~2024-01-06 | US_ITS ---
HISTORY: Lower abdominal pain. Rule out ectopic. Positive urine beta hCG. TECHNIQUE: The pelvis was examined via transabdominal and transvaginal approaches. Rice-scale imaging was performed, with color Doppler and spectral Doppler supplementation. COMPARISON: None. FINDINGS: An intrauterine gestational sac contains a pole and yolk sac. [place] rump length measures 0.36 cm, corresponding to an estimated gestational age of 6 weeks 1 days, for an estimated date of delivery of August 30, 2024. heart rate measures 116 BPM. The yolk sac measures 0.45 cm. No subchorionic bleed is appreciated. The ovaries appear unremarkable. The right ovary measures 3.7 x 2.1 x 1.8 cm. The left ovary measures 4.2 x 2.5 x 5.5 cm. No free fluid is seen in the pelvis. US/US OB <= 14 weeks fetus IMPRESSION: Single live intrauterine gestation at 6 weeks 1 days by ultrasound measurements. Electronically signed by: Jose Kinsey MD 01/06/2024 03:47 PM SHELL
--- NOTE | ~2024-01-06 | US_ITS ---
EXAMINATION: US ABDOMEN LIMITED CLINICAL INFORMATION: Right upper quadrant pain. COMPARISON: April 26, 2022. TECHNIQUE: Real-time imaging of the right upper quadrant abdominal viscera. FINDINGS: PANCREAS: Head and body appear unremarkable. Tail not visualized. LIVER: The liver appears unremarkable in size, contour, and echogenicity. No focal hepatic lesion identified. No intrahepatic biliary duct dilatation is seen. GALLBLADDER: Contracted. No evidence of of stones, sludge, polyps, significant wall thickening or pericholecystic fluid. COMMON BILE DUCT: Normal in caliber measuring 0.2 cm in diameter. RIGHT KIDNEY: No hydronephrosis. No renal calculi or focal parenchymal lesion identified. The kidney measures 10.1 cm in maximum dimension. FREE FLUID: None. US/US abdomen limited IMPRESSION: No acute finding. Electronically signed by: Jose Kinsey MD 01/06/2024 03:21 PM [facility]
[2024-01-06 11:07] VITALS: BP 118/67; PULSE 83; RESP 16; TEMP 36.5; O2SAT 99; BMI 26.3
--- NOTE | 2024-01-06 11:09 | ED_ITS ---
HPI - General Adult General Chief complaint: General Medical Stated complaint: back and abd pain Time Seen by Provider: 01/06/24 12:00 Source: patient, RN notes reviewed and old records reviewed Mode of arrival: ambulatory History of Present Illness ED Provider: Yany Garza PA-C HPI narrative: 28-year-old female with 2 positive home tests presenting to the ED complaining of lower abdominal/suprapubic pain, back pain, and headache x few days. LMP 11/23/23. does report intermittent nausea. denies fever, chills, vision change or loss, vomiting , dysuria/hematuria, vaginal bleeding or discharge. Has OBGYN appointment in January Related Data Previous Rx's ?Medication ?Instructions ?Recorded famotidine 20 mg tablet 20 mg PO BID #20 tabs 04/26/22 ibuprofen 600 mg tablet 600 mg PO Q8H PRN pain #14 tabs 04/26/22 metoclopramide HCl 10 mg tablet 10 mg PO Q6H PRN nausea and 04/26/22 (Reglan) vomiting #10 tabs omeprazole 40 mg capsule,delayed 40 mg PO DAILY #30 caps 07/13/22 release vit no.95-ferrous 1 tab PO DAILY #30 tabs 01/06/24 fumarate 28 mg-folic acid 800 mcg tablet ( Multivitamins) Allergies Allergy/AdvReac Type Severity Reaction Status Date / Time Penicillins Allergy Rash Verified 01/06/24 11:11 Review of Systems 2 Review of Systems: Yes all other systems are reviewed and are negative Constitutional: Constitutional: Reports as per [facility] Past Medical History Attestation statement: The following information was validated with the patient. Source: old records reviewed Social History Social History Alcohol intake: never Smoked in Last 30 Days: No Use of substances other than those prescribed or required for medical reasons: No Advance Directives: No Advance Directives Information Provided: Yes Advance Directives on File: No Do you have a plan to hurt others: No Plan Patient : No Physical Exam ED Vital Signs: Vital Signs - 24 hr 01/06/24 11:07 01/06/24 14:24 01/06/24 16:16 Temperature 97.7 F 98.6 F 98.3 F Pulse Rate 83 73 73 Respiratory Rate 16 16 18 Blood Pressure 118/67 107/71 107/71 Pulse Oximetry 99 100 98 Oxygen Delivery Method Room Air Room Air Room Air BMI result Body Mass Index 26.3 Const General: cooperative, healthy appearing and no acute distress Orientation/consciousness: patient oriented x3 Limitations: no limitations HENMT Head: Yes normal to inspection and Yes atraumatic Ears: hearing grossly normal bilaterally General nose exam: Normal external nose present Face and sinus: Yes normal facial exam Eyes General: appearance normal, both eyes and all related structures EOM: EOMs intact bilaterally Neck Neck: Yes normal visual inspection and Yes no meningeal signs Resp Effort & Inspection: normal respiratory effort and no respiratory distress Auscultation: clear to auscultation bilaterally Cardio Rate: regular rate Heart sounds: S1 normal heart sound present and S2 normal heart sound present GI Inspection: Yes normal to inspection Palpation (GI): Soft to palpation, Tenderness to palpation present (GI) in the RUQ and suprapubicly (right & left); with no rebound tenderness, no guarding and not rigid General: Yes no CVA tenderness Back/Spine/Pelvis Back: no CVA tenderness Skin Rashes: no rashes Wounds: no wounds Neuro General: patient oriented x3, tone normal and no meningeal signs Cranial nerves: Yes CN's II-XII intact bilaterally Gait exam (Neuro): Normal gait present Extrem General: Yes normal to inspection Course Course Course Narrative: RME, this is a rapid medical exam performed by Rudolph Srinivasan please refer to primary provider for complete H&P- 28-year-old female presents for evaluation of lower abdominal pain that radiates to her back. She reports a positive test, last menstrual cycle was November 22. the patient is and has an appointment with OBGYN for January 22. plan for labs, ultrasound to rule out ectopic -1235-- labs reassuring. HCG 28,395 - UA not infected -1600-- viral studies negative US OB transvaginalIMPRESSION: Single live intrauterine gestation at 6 weeks 1 days by ultrasound measurements. US abdomen limited IMPRESSION: No acute finding. Results discussed with patient including worrisome signs and symptoms and strict return precautions, recommended initiating vitamins and close OBGYN follow-up which patient confirmed she has not January. Discussed when to return to the emergency department. They verbalized understanding and feel safe for discharge at this time. Medical Decision Making Medical Decision Making [facility] Narrative: 28-year-old female with 2 positive home tests presenting to the ED complaining of lower abdominal/suprapubic pain, back pain, and headache x few days. on exam vital signs stable, NAD, nontoxic appearing, abdomen soft with RUQ and suprapubic tenderness to palpation, no rebound or guarding, no CVAT. No focal neuro deficits. Concern for early vs ectopic vs ovarian cyst or ? torsion vs cholecystitis/ lithiasis or pancreatitis. Renal stone on differential however lower at this time. Unlikely appendicitis /diverticulitis. Plan: Labs, UA, ultrasound, re-evaluate Please refer to course for remaining clinical decision making, interpretation of labs/imaging results, and discussions with consultants and/or family members. Differential Diagnosis Differential Diagnoses: The differential diagnosis associated with the presentation includes As above Admission/Observation Consideration of admission/observation: Escalation of care including admission/observation considered Lab Data [facility] Lab Attestation statement: I reviewed the patient's lab results. 01/06/24 11:33 01/06/24 11:33 Labs: Lab Results 01/06/24 01/06/24 01/06/24 Range/Units 11:32 11:33 13:21 WBC 8.4 (4.8-10.8) X10*3/uL RBC 4.16 L (4.20-5.50) X10*6/uL Hgb 12.6 (12.0-16.0) g/dl Hct 36.7 L (37.0-47.0) % MCV 88.2 (80.0-98.0) fL MCH 30.3 (27.0-33.0) pg MCHC 34.3 (31.0-35.0) g/dl RDW 11.9 (11.0-16.0) % Plt Count 309 (160-400) X10*3/uL MPV 9.6 (9.4-12.3) fL Immature Gran % (Auto) 0.2 (0.0-0.4) % Neut % (Auto) 62.0 (45-73) % Lymph % (Auto) 26.8 (20-40) % [place] % (Auto) 6.1 (2-11) % Eos % (Auto) 4.4 H (0-4) % Baso % (Auto) 0.5 (0-2) % Lymph # (Auto) 2.3 (1.2-4.9) X10*3/uL [place] # (Auto) 0.5 (0.1-1.2) X10*3/uL Eos # (Auto) 0.4 (0.0-0.4) X10*3/uL Baso # (Auto) 0.0 (0.0-0.2) X10*3/uL Abs Immat Gran (auto) 0.02 (0.00-0.03) X10*3/uL Absolute Neuts (auto) 5.2 (2.0-8.3) x10*3/uL Absolute Nucleated RBC 0.000 (0.0-0.012) X10*3/uL Nucleated RBC % (auto) 0.0 (0.0-0.2) /100WBC Sodium 136 (135-145) mmol/L Potassium 3.5 (3.3-5.1) mmol/L Chloride 107 (96-108) mmol/L Carbon Dioxide 22 (22-29) mmol/L Anion Gap 11 L (12-20) BUN 9 (9-16) mg/dL Creatinine 0.72 (0.5-1.4) mg/dL Estim Creat Clear Calc 118.6 Estimated GFR > 60 Random Glucose 84 (60-115) mg/dL Calcium 9.2 (8.4-10.2) mg/dL Magnesium 2.0 (1.6-2.6) mg/dL Total Bilirubin 0.4 (0.0-1.0) mg/dL AST 18 (5-31) U/L ALT 11 (0-31) U/L Alkaline Phosphatase 59 (39-117) U/L Total Protein 7.1 (6.5-8.0) g/dL Albumin 3.8 (3.5-5.0) g/dL Lipase 15 (8-78) U/L Beta HCG, Quant 60613 mIU/mL Urine Color Yellow Urine Appearance Clear Urine pH 5.0 (5.0-9.0) Ur Specific Usk >= 1.030 H (1.005-1.025) Urine Protein Negative (Neg-Trace) mg/dL Urine Glucose (UA) Negative (Negative) mg/dL Urine Ketones Trace (Negative) mg/dL Urine Blood Negative (Negative) Urine Nitrite Negative (Negative) Ur Leukocyte Esterase Negative (Negative) Urine RBC 0-2 (0-2) /HPF Urine WBC 0-5 (0-5) /HPF Ur Squamous Epith Cells 6-10 (0-2) /HPF Urine Bacteria Trace (None Seen) Hyaline Casts 0-2 (0-2) /LPF Influenza Type A (PCR) NEGATIVE (Negative) Influenza Type B (PCR) NEGATIVE (Negative) RSV RNA Qual (PCR) NEGATIVE (Negative) SARS-CoV-2 RNA (RT-PCR) NEGATIVE (Negative) Blood Type A Positive Independent Interpretation I performed an independent interpretation of an: Ultrasound Radiology Impression Discussion of test interpretation with radiology: I have reviewed the radiologist's reading. External Record Review External record reviewed: Inpatient record, Office record, Outpatient record, Prior outpatient labs, Prior outpatient radiology, Primary care record and Outside ED record Tests considered The following testing was considered but not selected: As above Prescription Management I considered prescription management with: Pain Medication Chronic Conditions Patient?s care impacted by: Other Social Determinants Patient?s care significantly limited by Social Determinants of Health including: Other Social Determinant of Health Discharge Plan Discharge Clinical Impression: Early stage of Patient Disposition: Home, Self-Care Instructions: (ED) Additional Instructions: your hCG is 28,395 your ultrasound shows 1 single live intrauterine gestation at 6 weeks and 1 day with estimated delivery date of August 30 please start taking vitamins You need to have close follow-up with OBGYN If you develop any constant or worsening abdominal pain, vaginal bleeding or discharge return to the ED immediately Prescriptions: New PNV cmb#95-ferrous fumarate-FA [ Multivitamins] 28 mg iron- 800 mcg tablet 1 tab PO DAILY Qty: 30 0RF No Action famotidine 20 mg tablet 20 mg PO BID Qty: 20 0RF metoclopramide HCl [Reglan] 10 mg tablet 10 mg PO Q6H PRN (Reason: nausea and vomiting) Qty: 10 0RF ibuprofen 600 mg tablet 600 mg PO Q8H PRN (Reason: pain) Qty: 14 0RF omeprazole 40 mg capsule,delayed release(DR/EC) 40 mg PO DAILY Qty: 30 0RF Ref[place] [facility] [place]] Interventions: ED Discharge Assessment Last Done: 01/06/24 16:16 Discharge Date/Time: 01/06/24 16:18 Print Language: [place]
[2024-01-06 11:37] LABS: MANUAL DIFF FLAG NO
[2024-01-06 11:40] LABS: Appearance Urine Clear; Color Urine Yellow; Glucose Urine UA Negative (Negative); Leukocyte Esterase Urine Negative (Negative); Nitrite Urine Negative (Negative); Specific Gravity - Urine >= 1.030 (1.005-1.025); Urine Blood Negative (Negative); Urine Ketones Trace mg/dL (Negative); Urine Protein Negative (Neg-Trace)
[2024-01-06 11:41] LABS: Basophils Percent Auto 0.5 % (0-2); Eosinophils Absolute Auto 0.4 X10*3/uL (0.0-0.4); Eosinophils Percent Auto 4.4 % (0-4); Hematocrit 36.7 % (37.0-47.0); Hemoglobin 12.6 g/dl (12.0-16.0); Imm Gran Abs Auto 0.02 X10*3/uL (0.00-0.03); Imm Gran Pct Auto 0.2 % (0.0-0.4); Lymphocytes Absolute Auto 2.3 X10*3/uL (1.2-4.9); Lymphocytes Percent Auto 26.8 % (20-40); Mean Corpuscular HGB Conc 34.3 g/dl (31.0-35.0); Mean Corpuscular Hemoglobin 30.3 pg (27.0-33.0); Mean Corpuscular Volume 88.2 fL (80.0-98.0); Mean Platelet Volume 9.6 fL (9.4-12.3); Monocytes Absolute Auto 0.5 X10*3/uL (0.1-1.2); Monocytes Percent Auto 6.1 % (2-11); Neutrophils Absolute Auto 5.2 x10*3/uL (2.0-8.3); Platelet Count 309 X10*3/uL (160-400); Red Blood Count 4.16 X10*6/uL (4.20-5.50); Red Cell Distribution Width 11.9 % (11.0-16.0); White Blood Count 8.4 X10*3/uL (4.8-10.8)
[2024-01-06 11:42] LABS: Bacteria Urine Trace (None Seen); Hyaline Casts Urine 0-2 /LPF (0-2); RBC Urine 0-2 /HPF (0-2); WBC Urine 0-5 /HPF (0-5)
[2024-01-06 11:52] LABS: Alanine Aminotransferase 11 U/L (0-31); Albumin Level 3.8 g/dL (3.5-5.0); Alkaline Phosphatase 59 U/L (39-117); Anion Gap 11 (12-20); Aspartate Amino Transferase 18 U/L (5-31); Bilirubin Total 0.4 mg/dL (0.0-1.0); Blood Urea Nitrogen 9 mg/dL (9-16); Calcium 9.2 mg/dL (8.4-10.2); Carbon Dioxide 22 mmol/L (22-29); Chloride 107 mmol/L (96-108); Creatinine Clr Calc Pharmacy 118.6; Estimated Glomerular Filt Rate > 60; Glucose Random 84 mg/dL (60-115); Lipase 15 U/L (8-78); Potassium 3.5 mmol/L (3.3-5.1); Sodium 136 mmol/L (135-145); Total Protein 7.1 g/dL (6.5-8.0)
[2024-01-06 12:22] LABS: HCG Quantitative 28395 mIU/mL
[2024-01-06 14:06] LABS: Influenza A PCR NEGATIVE (Negative); Influenza B PCR NEGATIVE (Negative); Resp Syncy Virus RNA Qual PCR NEGATIVE (Negative); SARS COV2 PCR INHOUSE NEGATIVE (Negative)
[2024-01-06 14:24] VITALS: BP 107/71; PULSE 73; RESP 16; TEMP 37; O2SAT 100
[2024-01-06 16:16] VITALS: BP 107/71; PULSE 73; RESP 18; TEMP 36.8; O2SAT 98
== END 2024-01-06 16:18 | disposition home or self-care (01) ==
PROVIDERS: Physician Assistant; Emergency Provider Emergency Medicine
DX: O26.891 Other specified pregnancy related conditions, first trimester (principal); R10.30 Lower abdominal pain, unspecified; Z3A.01 Less than 8 weeks gestation of pregnancy; Z03.818 Encounter for observation for suspected exposure to other biological agents ruled out
CPT/HCPCS: 0241U; 36415; 76705; 76801; 76817; 80053; 81001; 83690; 83735; 84702; 85025; 86900; 86901; 99284

== ENCOUNTER 2024-10-05 17:54 | Outpatient (REF) | payer MEDICAID, SELFPAY ==
--- OUTSIDE RECORDS SUMMARY | 2024-10-05 17:56 | XMS_ITS | Clinical Summary ---
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 1 each 03/03/2024 Active Active Problems Comments Yes No known active problems Medical History Medical History Date Comments Asthma Social History Tobacco Use Types Packs/Day Years Used Date Smoking Tobacco: Never Smokeless Tobacco: Never Tobacco Cessation:Counseling Given: Not Answered Comments Yes Sex and Gender Information Value Date Recorded Sex Assigned at Female 02/18/2024 6:37 AM EST Legal Sex Female 11:51 AM EST Gender Identity Female 02/18/2024 6:37 AM EST Sexual Orientation Choose not to disclose 2024 1:35 PM EST Sexual Orientation Straight 03/24/2024 1: 35 PM EST Obstetrics History Para Term AB IAB SAB Ectopic Multiple Livin g Live Births 1 Date Outcome GA Total Labor Labor/2nd/3rd Weight Sex Type Anes PTL Karlie A1 A5 Name Clin Current Last Filed Vital Signs Vital Sign Reading Time Taken Comments Blood Pressure 119/88 03/24/2024 12:04 PM EST Pulse 103 03/24/2024 12:04 PM EST Temperature 36.6 C (97.8 F) 03/24/2024 12:04 PM EST Respiratory Rate 20 03/24/2024 12:04 PM EST Oxygen Saturation 97% 03/24/2024 12:04 PM EST Inhaled Oxygen Concentration - - Weight 71.7 kg (158 lb) 03/24/2024 12:04 PM EST Height 162.6 cm (5' 4 ) 03/24/2024 12:04 PM EST Body Mass Index 27.12 03/24/2024 12:04 PM EST Plan of Treatment Health Maintenance Due Date Last Done Comments DTaP,Tdap,and Td Vaccines (1 - Tdap) 2013 Hepatitis B Vaccines (1 of 3 - 19+ 3-dose series) 2013 Pneumococcal Vaccine: Pediat rics (0 to 5 Years) and At-Risk Patients (6 to 49 Years) (1 of 2 - PCV) 2013 Cervical Cancer Screening: P ap Smear 09/27/2015 COVID-19 Vaccine ( - 2023-2 5 season) 2023 HIV Screening 02/12/2024 Hepatitis C Screening 02/12/2024 Social Influencers of Health Screening 02/12/2024 Depression Screening 02/15/2024 Influenza Vaccine (#1) 2024 02/21/2024 HIB Vaccines Aged Out No longer eligi ble based on patient's age to complete this topic HPV Vaccines Aged Out No longer eligi ble based on patient's age to complete this topic Hepatitis A Vaccines Aged Out No long er eligible based on patient's age to complete this topic IPV Vaccines Aged Out No longer eligi ble based on patient's age to complete this topic Meningococcal ACWY Vaccine Aged Out N o longer eligible based on patient's age to complete this topic Meningococcal B Vaccine Aged Out No l onger eligible based on patient's age to complete this topic RSV Immunization Patients Un cristopher 20 months Aged Out No longer eligible b ased on patient's age to complete this topic Insurance MEDICAID - [place] 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
[2024-10-06 04:22] LABS: Bacterial Vaginosis PCR NEGATIVE (Negative); Candida Group PCR NOT DETECTED (Not Detect); Candida glab krusei PCR NOT DETECTED (Not Detect); Trichomonas vaginalis PCR NOT DETECTED (Not Detect)
[2024-10-06 04:54] LABS: CT PCR NOT DETECTED (Not Detect.); NG PCR NOT DETECTED (Not Detect.)
== END 2024-10-05 17:55 | disposition home or self-care (01) ==
LOC: HO.HHCLNP 17:54
PROVIDERS: Visit Provider Internal Medicine
DX: N93.8 Other specified abnormal uterine and vaginal bleeding (principal)
CPT/HCPCS: 81515; 87491; 87591

== ENCOUNTER 2024-11-23 12:02 | Outpatient (REF) | payer MEDICAID, SELFPAY ==
[2024-11-26 11:33] LABS: TS Negative Control Passed; TS Panel A 0; TS Panel B 1; TS Positive Control Passed; TSpotTB Negative (Negative)
== END 2024-11-23 12:03 | disposition home or self-care (01) ==
LOC: HO.HHCL 12:02
PROVIDERS: PCP Internal Medicine; Visit Provider Internal Medicine
DX: Z11.1 Encounter for screening for respiratory tuberculosis (principal)
CPT/HCPCS: 36415; 86481

== ENCOUNTER 2025-01-24 10:39 | Outpatient (REF) | payer MEDICAID, SELFPAY ==
[2025-01-24 13:59] LABS: MANUAL DIFF FLAG NO
[2025-01-24 14:02] LABS: Hematocrit 39.6 % (37.0-47.0); Hemoglobin 13.1 g/dl (12.0-16.0); Imm Gran Abs Auto 0.01 X10*3/uL (0.00-0.03); Imm Gran Pct Auto 0.1 % (0.0-0.4); Lymphocytes Absolute Auto 2.1 X10*3/uL (1.2-4.9); Mean Corpuscular HGB Conc 33.1 g/dl (31.0-35.0); Mean Corpuscular Hemoglobin 29.1 pg (27.0-33.0); Mean Corpuscular Volume 88.0 fL (80.0-98.0); NRBC Abs Auto 0.000 X10*3/uL (0.0-0.012); NRBC Pct Auto 0.0 /100WBC (0.0-0.2); Platelet Count 311 X10*3/uL (160-400); Red Blood Count 4.50 X10*6/uL (4.20-5.50); White Blood Count 6.8 X10*3/uL (4.8-10.8)
[2025-01-24 14:25] LABS: Alanine Aminotransferase 15 U/L (0-31); Albumin Level 4.4 g/dL (3.5-5.0); Alkaline Phosphatase 70 U/L (39-117); Anion Gap 11 (12-20); Aspartate Amino Transferase 24 U/L (5-31); Blood Urea Nitrogen 14 mg/dL (9-16); Calcium 9.2 mg/dL (8.4-10.2); Carbon Dioxide 23 mmol/L (22-29); Chloride 110 mmol/L (96-108); Cholesterol 161 mg/dL (<200); Estimated Glomerular Filt Rate > 60; HDL Cholesterol 56 mg/dL (>40); Potassium 4.5 mmol/L (3.3-5.1); Sodium 139 mmol/L (135-145); Total Protein 7.5 g/dL (6.5-8.0); Triglycerides 39 mg/dL (<150)
[2025-01-24 15:03] LABS: Reflex LDLD? No
[2025-01-25 08:03] LABS: HBS Num1 0.82 mIU/mL (0-7.99); HBc Num1 0.10 S/CO (0.00-0.79); HBsAGNum1 0.32 S/CO (0.00-0.99); Hepatitis A Antibody IgM 0.26 Index (0-0.79); Hepatitis B Surface Antigen Negative (Negative); ~HepC Num1 0.10 S/CO (0.00-0.79); ~Hepatitis A Antibody IgM Nonreactive (Nonreactive); ~Hepatitis B Surface Antibody NONREACTIVE (Nonreactive); ~Hepatitis C Antibody Nonreactive (Nonreactive)
== END 2025-01-24 10:40 | disposition home or self-care (01) ==
LOC: HO.HHCL 10:39
PROVIDERS: PCP Internal Medicine; Visit Provider Internal Medicine
DX: Z00.00 Encounter for general adult medical examination without abnormal findings (principal); Z11.59 Encounter for screening for other viral diseases; E66.3 Overweight; K62.5 Hemorrhage of anus and rectum
CPT/HCPCS: 36415; 80053; 80061; 84443; 85025; 86704; 86706; 86709; 86803; 87340